=== PATIENT | female | born 1975 | race Caucasian/White ===

== ENCOUNTER 2017-05-06 19:06 | Emergency (ER) | payer OTHER ==
[~2017-05-06 19:06] MED LIST: AMOXICILLIN875 MG PO; CERTAGEN PO; CLARITIN D PO; FLONASE 0.05% N16 G1; HYDROCODON-ACE1 EAC9 PO; IBUPROFEN800 MG PO; LEVAQUIN PO; PAIN RELIEF325 M1 PO; VICODIN 5/500 T1 TAB PO; ZOFRAN PO; ZYRTEC PO
== END 2017-05-06 20:27 | disposition left against medical advice (07) ==
LOC: CED 19:06
DX: Z53.21 Procedure and treatment not carried out due to patient leaving prior to being seen by health care provider (principal)